=== PATIENT | female | born 1995 | race Caucasian/White ===

== ENCOUNTER 2017-03-25 14:55 | Emergency (ER) | payer OTHER ==
[~2017-03-25] VITALS: Ht 170.2 cm; Wt 100.5 kg
[2017-03-25 15:01] VITALS: Ht 170.2 cm; Wt 100.5 kg
[2017-03-25] MEDS ORDERED: KETOROLAC TROMETHAMINE 60 MG/2 ML VIAL IM STA (15:19)
[2017-03-25] MEDS ORDERED: CYM60 PO (15:21)
[2017-03-25] MEDS ORDERED: DEXAMETHASONE SOD INJ 10 MG/ML VIAL IM ONE (15:30)
[2017-03-25] MEDS ORDERED: TRAM-10 PO (15:32)
[2017-03-25] MEDS ORDERED: METH4PAK PO (15:32)
[2017-03-25 15:51] VITALS: BP 148/94; PULSE 82; TEMP 37; O2SAT 98
--- NOTE | 2017-03-25 15:53 | EMERGENCY ROOM VISIT NOTE ---
History First contact with patient: 15:05 Chief Complaint: BACK PAIN Stated Complaint: SCIATIC NERVE PAIN History of Present Illness The patient is a 22 year old female who presents to the Emergency Room with complaints of a 2 day history of severe lower back pain radiating down the right leg to the foot. The patient reports that she does have a prior history of sciatica with her last major episode approximately 8 years ago. Her most recent appointment with her family doctor was a few years ago, at which time it was suggested that she undergo physical therapy. The patient did not do so. The patient denies any recent injury to her back. She currently denies any right lower extremity weakness, foot drop, saddle anesthesias or bladder/bowel incontinence. She has taken Flexeril in the past without any change in her pain. She currently rates her discomfort a 9 out of 10. The patient reports that she has had multiple imaging studies in the past as well. Review of Systems 10 system review was performed and was negative except for pertinent positives and negatives as indicated in history of present illness Past Medical/Surgical History Medical Problems: (1) Asthma, Unspecified (2) Back strain (3) Depressive Disorder Nec (4) Hypertension (5) delivery (6) Twins Surgical Problems: (1) History of tonsillectomy Family History FH: diabetes mellitus FH: hypertension FH: kidney disease Social History Smoking Status: Current Every Day Smoker Alcohol Use: occasionally Marital Status: single Housing Status: lives with family Occupation Status: employed Current/Historical Medications Scheduled Duloxetine HCl (Duloxetine HCl), 60 MG PO DAILY Methylprednisolone (Medrol Dosepak), 0 PO DAILY Scheduled PRN Tramadol (Ultram), 1 TAB PO Q4H PRN for Pain Physical Exam Vital Signs Date Time Temp Pulse Resp B/P (MAP) Pulse Ox O2 Delivery O2 Flow Rate FiO2 03/25/17 15:51 37.0 82 18 148/94 98 03/25/17 15:01 37.0 84 18 151/101 99 Room Air Physical Exam CONSTITUTIONAL: Healthy and well nourished. Alert and oriented X 3 with positive affect. Patient appears in mild to moderate discomfort from pain. HEENT: Normocephalic, atraumatic. Pupils equal, round and reactive. NECK: Full active range of motion without discomfort. GASTROINTESTINAL: Bowel sounds present in all quadrants. Negative CVA tenderness. Abdomen is soft and nontender to palpation. MUSCULOSKELETAL: Examination shows tenderness to palpation through the right lower lumbar paraspinous muscles without palpable spasm. She is also tender through the right SI joint. Negative logroll. Positive sitting straight leg raise. Ankle plantar/dorsiflexion strength is 5 out of 5 and symmetric bilaterally. Pedal pulses are intact. INTEGUMENTARY: No rash or other significant dermatologic conditions noted. NEUROLOGIC: No focal neurologic deficits noted. Lower extremity deep tendon reflexes are 2+ and symmetric bilaterally. Medical Decision & Procedures Medications Administered Medications (Trade) Dose Ordered Sig/Eric Route Start Time Stop Time Status Last Admin Dose Admin Ketorolac Tromethamine (Toradol Inj) 60 mg NOW STAT IM 03/25/17 15:19 03/25/17 15:20 DC 03/25/17 15:26 60 MG Dexamethasone Sodium Phosphate (Decadron Inj) 10 mg NOW ONCE IM 03/25/17 15:30 03/25/17 15:31 DC 03/25/17 15:26 10 MG ED Course Patient history and physical exam were performed. Nurse's notes were reviewed. Vital signs were reviewed, showing a blood pressure of 151/101. The patient was advised of her elevated blood pressure, and instructed to follow-up with her PCP for further hypertension management. The patient was advised that her history and clinical exam are most consistent with right lumbar radiculitis/ sciatica. The patient was administered Toradol 60 mg and Decadron 10 mg IM. She was provided prescriptions for a Medrol Dosepak and Ultram. She was also encouraged to alternate ibuprofen and Tylenol for baseline pain relief. She was instructed to follow-up with her PCP for further management. The patient reports that she currently is between doctors, and would prefer to see someone in the [facility]. The patient lives in [place]. She was provided contact information for Dr. Meraz's office. She was instructed to return to the emergency department for any profound right lower extremity weakness, foot drop, saddle anesthesias or urinary/fecal incontinence. The patient was happy with plan of care, voiced understanding of all discharge instructions, and rated her pain a 4 out of 10 at the conclusion of my exam. Medical Decision Clinical exam and history are not suggestive of spinal abscess, hematoma or cauda equina syndrome. At this point, I do not feel that further advanced imaging studies are warranted. She denies any recent injury to warrant x-rays of the lumbar spine. The patient reports that she has had multiple imaging studies in the past as well. [facility] Drug Monitoring Program Search Results: patient reviewed within database, no issues identified Medication Reconcilliation Current Medication List: was personally reviewed by me Blood Pressure Screening Patient's blood pressure: Elevated blood pressure Blood pressure disposition: Referred to PCP Impression Primary Impression: Low back pain with right-sided sciatica Additional Impressions: Elevated blood pressure reading Hypertension Departure Information Prescriptions Tramadol (Ultram) 50 Mg Tab 1 TAB PO Q4H Y for Pain, #30 TAB For Initial Treatment Prov: Junior Luke PA 03/25/17 Methylprednisolone (MEDROL DOSEPAK) 4 Mg Robinson 0 PO DAILY, #1 PKT Prov: Junior Luke PA 03/25/17 Referrals No Doctor, Assigned (PCP) Patient Instructions [facility] Problem Qualifiers Primary Impression: Low back pain with right-sided sciatica Chronicity: acute Back pain laterality: right Qualified Codes: M54.41 - Lumbago with sciatica, right side Additional Impressions: Hypertension Hypertension type: essential hypertension Qualified Codes: I10 - Essential ( primary) hypertension
== END 2017-03-25 15:52 | disposition home or self-care (01) ==
LOC: C.EDB 14:56 → C.EDD 15:52
DX: M54.41 Lumbago with sciatica, right side (principal); I10 Essential (primary) hypertension; J45.909 Unspecified asthma, uncomplicated; F32.9 Major depressive disorder, single episode, unspecified; Z83.3 Family history of diabetes mellitus; Z82.49 Family history of ischemic heart disease and other diseases of the circulatory system; F17.200 Nicotine dependence, unspecified, uncomplicated

== ENCOUNTER 2017-09-01 13:02 | Emergency (ER) | payer OTHER ==
[~2017-09-01] VITALS: Ht 170.2 cm; Wt 106.8 kg
[~2017-09-01 13:02] MED LIST: CYM60 PO; TRAM-10 PO
[2017-09-01 13:14] VITALS: TEMP 37.2; Ht 170.2 cm; Wt 106.8 kg
[2017-09-01 14:04] LABS: INFLUENZA B ANTIGEN Neg for Influ B (NEG)
--- NOTE | 2017-09-01 14:22 | DIAGNOSTIC IMAGING REPORT ---
CHEST 2 VIEWS ROUTINE CLINICAL HISTORY: cough, fever dyspnea COMPARISON STUDY: No previous studies for comparison. FINDINGS: Small parenchymal infiltrate medial right base. Lungs otherwise are clear. Diaphragms are smooth. IMPRESSION: Small parenchymal infiltrate medial right base. The above report was generated using voice recognition software. It may contain grammatical, syntax or spelling errors. Electronically signed by: Haja Hoang M.D. 09/01/2017 2:21 PM Dictated Date/Time: 09/01/2017 2:20 PM
[2017-09-01] MEDS ORDERED: DULO60CA44 PO (14:39)
[2017-09-01 14:43] VITALS: BP 157/107; PULSE 90; O2SAT 99
[2017-09-01] MEDS ORDERED: VNTHFA/IN INH (14:43)
[2017-09-01] MEDS ORDERED: CIPR0.3S OP (14:43)
[2017-09-01] MEDS ORDERED: AZITTAB PO (14:43)
[2017-09-01] MEDS ORDERED: METH4PAK PO (14:45)
--- NOTE | 2017-09-01 15:18 | EMERGENCY ROOM VISIT NOTE ---
History First contact with patient: 13:23 Chief Complaint: FLU LIKE SX Stated Complaint: FLU, PINK EYE History of Present Illness The patient is a 22 year old female who presents to the Emergency Room with complaints of multiple symptoms, including cough, bilateral ear congestion, draining sinuses and left eye redness. The patient reports that she has had these problems now for approximately one month area she reports that she has been coughing up a little bit of blood over the past week. She has had some nausea and vomiting after coughing and the patient has a history of asthma, but does not have any albuterol inhalers at home. The patient rates her overall discomfort a 3 out of 10. Review of Systems 10 system review was performed and was negative except for pertinent positives and negatives as indicated in history of present illness Past Medical/Surgical History Medical Problems: (1) Asthma, Unspecified (2) Back strain (3) Depressive Disorder Nec (4) Hypertension (5) delivery (6) Twins Surgical Problems: (1) History of tonsillectomy Family History FH: diabetes mellitus FH: hypertension FH: kidney disease Social History Smoking Status: Current Every Day Smoker Alcohol Use: occasionally Marital Status: single Housing Status: lives with family Occupation Status: employed Current/Historical Medications Scheduled Albuterol Hfa (Ventolin Hfa), 2 PUFFS INH QID Azithromycin (Zithromax Z-Genia), 0 PO UD Ciprofloxacin Hcl (Ophth) (Ciloxan Oph), 1 DROPS OP QID Duloxetine Hcl (Cymbalta), 60 MG PO DAILY Methylprednisolone (Medrol Dosepak), 0 PO DAILY Physical Exam Vital Signs Date Time Temp Pulse Resp B/P (MAP) Pulse Ox O2 Delivery O2 Flow Rate FiO2 09/01/17 14:43 90 20 157/107 99 Room Air 09/01/17 13:14 37.2 82 18 181/92 98 Room Air Physical Exam CONSTITUTIONAL: Healthy and well nourished. Alert and oriented X 3 with positive affect. She does not appear toxic on exam. HEENT: Normocephalic, atraumatic. Pupils equal, round and reactive. Examination of the ears shows erythematous TMs bilaterally with air-fluid levels /serous effusion. No purulent rhinorrhea. No scleral icterus. The patient does have mild left conjunctival injection without periorbital edema or erythema. OROPHARYNX: Minimal posterior pharyngeal erythema without tonsillar exudates. Negative trismus. NECK: Full active range of motion without discomfort. LYMPHATICS: She has mild anterior cervical chain adenopathy. RESPIRATORY: Clear to auscultation bilaterally with no wheezing, crackles, rhonchi or stridor. CARDIOVASCULAR: Regular rate and rhythm with no murmurs, rubs or gallops. GASTROINTESTINAL: Bowel sounds present in all quadrants. Soft and nontender to palpation. MUSCULOSKELETAL: Full range of motion of all joints without discomfort. INTEGUMENTARY: No rash or other significant dermatologic conditions noted. HEMATOLOGIC: No ecchymosis or petechiae noted. NEUROLOGIC: No focal neurologic deficits noted. Medical Decision & Procedures ER Provider Diagnostic Interpretation: My interpretation of a two-view chest x-ray shows a small infiltrate in the medial right base. No pneumothorax or cardiomegaly noted. Radiologist report is as follows: CHEST 2 VIEWS ROUTINE CLINICAL HISTORY: cough, fever dyspnea COMPARISON STUDY: No previous studies for comparison. FINDINGS: Small parenchymal infiltrate medial right base. Lungs otherwise are clear. Diaphragms are smooth. IMPRESSION: Small parenchymal infiltrate medial right base. Laboratory Results Test 09/01/17 13:12 Influenza Type A Antigen Neg for Influ A (NEG) Influenza Type B Antigen Neg for Influ B (NEG) ED Course Patient history and physical exam were performed. Nurse's notes were reviewed. Vital signs were reviewed, showing an elevated blood pressure 181/92. Patient is otherwise afebrile. O2 saturation is 98% on room air, and pulse rate is normal. Patient does not appear in any acute respiratory distress. Per nursing protocol, and influenza screen was ordered and was negative. A two- view chest x-ray shows a small parenchymal infiltrate of the medial right base. Given all of her symptoms, the patient will be treated with Zithromax, Medrol Dosepak and Ciloxan 0.3% ophthalmic solution. The patient was also provided a prescription for a Ventolin metered-dose inhaler. The patient was instructed to follow-up with her PCP in 7-10 days for reevaluation and repeat chest x-ray. Return to the emergency department sooner for any significantly worsening symptoms. The patient was happy with plan of care, and voiced understanding of all discharge instructions. Medical Decision Impression Primary Impression: Pneumonia Additional Impressions: Asthma exacerbation Conjunctivitis Departure Information Prescriptions Methylprednisolone (MEDROL DOSEPAK) 4 Mg Genia 0 PO DAILY, #1 PKT Prov: Junior Luke PA 09/01/17 Albuterol Hfa (VENTOLIN HFA) 200 Puffs/[id number] Mcg Aers 2 PUFFS INH QID, #1 INHALER Prov: Junior Luke PA 09/01/17 Azithromycin (ZITHROMAX Z-GENIA) 250 Mg Tab 0 PO UD, #1 PKT 2 TABS DAY 1, THEN 1 TAB DAILY FOR 4 DAYS Prov: Junior Luke PA 09/01/17 Ciprofloxacin Hcl (Ophth) (CILOXAN OPH) 0.3 % Heidi 1 DROPS OP QID, #5 ML Prov: Junior Luke PA 09/01/17 Referrals No Doctor, Assigned (PCP) Patient Instructions [facility] Problem Qualifiers
== END 2017-09-01 15:03 | disposition home or self-care (01) ==
LOC: C.EDB 13:03 → C.EDD 15:03
DX: J18.9 Pneumonia, unspecified organism (principal); J45.901 Unspecified asthma with (acute) exacerbation; H10.9 Unspecified conjunctivitis; F32.9 Major depressive disorder, single episode, unspecified; I10 Essential (primary) hypertension; F17.200 Nicotine dependence, unspecified, uncomplicated; Z83.3 Family history of diabetes mellitus; Z82.49 Family history of ischemic heart disease and other diseases of the circulatory system; Z84.1 Family history of disorders of kidney and ureter

== ENCOUNTER → 2017-09-06 | Outpatient (CLI) | payer OTHER ==
[~2017-09-06] MED LIST changes: +AZITTAB PO; +CIPR0.3S OP; -CYM60 PO; +DULO60CA44 PO; +METH4PAK PO; -TRAM-10 PO; +VNTHFA/IN INH
--- NOTE | 2017-09-06 14:05 | DIAGNOSTIC IMAGING REPORT ---
MRI OF THE LUMBAR SPINE WITHOUT CONTRAST CLINICAL HISTORY: Lumbar radiculopathy. Right lower extremity pain. COMPARISON STUDY: Lumbar spine radiographs March 04, 2016. TECHNIQUE: Utilizing a 1.5 Joyce magnet and dedicated coil, multiplanar, multiecho imaging of the lumbar spine was performed without IV contrast. FINDINGS: For purposes of numbering on this exam, the L5-S1 disc space is assigned to axial image 23 of 25. Alignment of the lumbar spine is anatomic. Vertebral body heights are maintained. The conus terminates at the mid L1 level. Paravertebral soft tissues are unremarkable. There is no suspicious marrow replacement. There is minimal disc space narrowing with desiccation of the L5-S1 disc. L1-2: The central canal and neural foramen are patent. L2-3: The central canal and neural foramen are patent. L3-4: The central canal and neural foramen are patent. L4-5: The central canal and neural foramen are patent. L5-S1: There is a 1.5 x 1.4 x 1.3 cm central/right paracentral disc extrusion which results in severe narrowing of the right aspect of the canal and the right lateral recess. There is significant mass effect upon the descending right S1 nerve root. The neural foramen are patent. There is minimal disc bulge at this level. No additional disc herniations are identified. 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 Electronically signed by: Kris Hall M.D. 09/06/2017 2:04 PM Dictated Date/Time: 09/06/2017 1:57 PM
== END | disposition home or self-care (01) ==
LOC: C.MRI 13:15
PROVIDERS: ATTEND Psychiatry & Neurology Neurology
DX: M51.17 Intervertebral disc disorders with radiculopathy, lumbosacral region (principal)